=== PATIENT | female | born 1995 | race Hispanic/Latino ===

== ENCOUNTER 2023-05-04 09:21 | Day surgery (SDC) | payer BC ==
[2023-05-04] MEDS ORDERED: Ringers Lactate 1,000 ML IV ONE (09:39)
[2023-05-04] MEDS ORDERED: CEFAZOLIN SODIUM 1 GM/VIAL ONE (09:39)
[2023-05-04 10:10] LABS: Urine Specific Gravity/Preg 1.025 (1.005-1.030)
[2023-05-04 10:13] LABS: Hematocrit 38.7 % (36.0-45.0); Lymphocytes % 25.5 % (15.3-44.8); MCV 92.3 fL (80-100); MPV 8.3 fL (7.6-11.3)
[2023-05-04 10:31] LABS: Potassium 4.2 mEq/L (3.5-5.1)
[2023-05-04] MEDS ORDERED: propofoL 200 MG/20 ML VIAL IV ONE (11:33)
[2023-05-04] MEDS ORDERED: FENTANYL CITR 100 MCG/2 ML ONE (11:33)
[2023-05-04] MEDS ORDERED: ONDANSETRON 4 MG/2 ML VIAL ONE (11:33)
[2023-05-04] MEDS ORDERED: MIDAZOLAM HCL 2 MG/2 ML INJ ONE (11:33)
[2023-05-04] MEDS ORDERED: LIDOCAINE 2% MPF 5 ML VIAL ONE (11:33)
[2023-05-04] MEDS ORDERED: KETOROLAC 30 MG/ML INJ ONE (11:33)
[2023-05-04] MEDS ORDERED: BUPIVACAINE 0.5% PF 10 ML VIAL ONE (12:32)
--- NOTE | 2023-05-04 13:20 | P.BOP ---
Preoperative diagnosis: Infected left groin subQ mass Postoperative diagnosis: same Primary procedure: Excisional biopsy of Infected left groin subQ mass 3x3cm Estimated blood loss: <5cc Specimen: mass Findings: hyperpigmentated mass Anesthesia: General Complications: None Transferred to: Recovery Room Condition: Good
[2023-05-04] MEDS ORDERED: dexAMETHasone 10 MG/ML VIAL ONE (13:59)
[2023-05-04] MEDS ORDERED: MORPHINE 4 MG/ML SYR ONE (14:00)
[2023-05-04 14:03] VITALS: O2SAT 100
[2023-05-04 14:34] VITALS: BP 112/69; TEMP 97.8
--- NOTE | 2023-05-07 14:16 | DS ---
Date of Discharge: 05/04/2023 Diagnosis: Infected left groin subcutaneous mass. Procedure: Excisional biopsy of infected left groin subcutaneous mass. Disposition: Home. Activity: As tolerated. No heavy lifting. Plan: Follow up in my office in 1 week. Call for appointment at [phone]. Triple antibiotics over the area 3 times a day. Clean with soap and water starting tomorrow. Medications: Called from the office. ELMO/CYRIL Voice ID: [id number] Report ID: [id number]
--- NOTE | 2023-05-07 14:31 | OP ---
Date of Procedure: 05/04/2023 Surgeon: Russ Quinteros MD Preoperative Diagnosis: Infected left groin subcutaneous mass. Postoperative Diagnosis: Infected left groin subcutaneous mass. Procedure: Excisional biopsy of infected left groin subcutaneous mass. Area is 3 x 3 cm. Estimated Blood Loss: Less than 5 cc. Specimen: Mass. Finding: Hyperpigmented mass with subcutaneous fluid. Anesthesia: General plus local. Indication: This is the case of a lady, who comes to us with a mass on the left groin. She has been on antibiotics. It has been draining on and off, keeps going from small to big size, last time we s aw her in the office. She recently had drainage coming from that area. It builds once again. The b enefits, alternatives, and risks of excision fully explained, which include, but not limited to infec tion, bleeding, damage to adjacent structures, anesthesia complication, recurrence, GA, and even deat h. Even though she preferred not to pack, she understands there is a possibility history of infection and the location. She prefers to close that area, so I am going to trying to clean this area the best I can, see if I can put some stitches and if it does not work, then she may have to cl ose by secondary intention. She would like that plan better. The area of concern was marked by me a nd the patient in the holding room. Procedure In Detail: The patient was brought to the operating room, placed in supine position. Anes thesia was done without complication. Left groin was prepped and draped in the usual sterile fashion . Local anesthesia was applied followed by a wedge incision of the skin. Once we have that, we have this subcutaneous mass present, hyperpigmented. There was some fluid and loculations present and wa s profusely irrigated. The area was approximated with the help of a suture mattress and covered with sterile dressings. The patient tolerated the procedure well. The patient was sent to recovery in s table condition. ELMO/CYRIL Voice ID: [id number] Report ID: [id number]
== END 2023-05-04 14:50 | disposition home or self-care (01) ==
LOC: OR 09:21
PROVIDERS: ATTEND Surgery
PROC: 0JBC0ZZ Excision of Pelvic Region Subcutaneous Tissue and Fascia, Open Approach (ICD-10-PCS; principal; 2023-05-04 12:30)
DX: R22.2 Localized swelling, mass and lump, trunk (principal); L08.9 Local infection of the skin and subcutaneous tissue, unspecified
CPT/HCPCS: 85025; 80048; 36415; 81025; 88305; 11403; J2704; J2001; J2250; J3010; J1100; J2405; J7120; J0690; 88304